=== PATIENT | female | born 1990 | race Caucasian/White ===

== ENCOUNTER 2016-06-27 10:40 | Emergency (ER) ==
[2016-06-27 10:53] VITALS: BP 133/82
--- NOTE | 2016-06-27 11:02 | PROVIDER DOCUMENTATION ---
HPI-Work Related Injury - General Chief Complaint: Work Related Injury Stated Complaint: WORK RELATED INJURY Time Seen by Provider: 06/27/16 11:02 Allergies/Adverse Reactions: Patient Allergies Allergy/AdvReac Type Severity Reaction Status Date / Time No Known Allergies Allergy Verified 06/27/16 11:01 Home Medications: Home Medication List Medication Instructions Recorded Confirmed Last Taken Type Acyclovir 400 mg PO BID 02/27/13 06/27/16 06/26/16 History Hydrocodone/APAP 7.5 mg/325 mg 7.5 mg PO PRN PRN 06/27/16 06/27/16 Unknown History [[place]-7.5] Mupirocin Ointment [Bactroban 1 applicatn TOP TID #1 tube 06/27/16 Unknown Rx Ointment] Tramadol [Ultram] 50 mg PO BID 06/27/16 06/27/16 Unknown History - History of Present Illness-Work Injury Nature of PresentingProblem: Pt sustained laceration to posterior aspect of left 2nd digit at distal phalanx yesterday when she was 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 Location of Pain/Injury: reports: other (left 2nd digit) Pain Radiation: reports: no radiation Body: 1 - laceration Quality of Pain: reports: aching Severity: reports: mild Onset/Duration: reports: 24 hours ago Timing: reports: still present Modifying Factors: improves with: rest Associated Symptoms: denies: dizziness, muscle aches, nausea, rash, weakness Similar Symptoms Previously?: No Recently seen or treated by another doctor?: No Review of Systems - Adult - REVIEW OF SYSTEMS - ADULT Constitutional: denies: chills, fever Eyes: denies: blurred vision, double vision Cardiovascular: reports: no symptoms reported Respiratory: reports: no symptoms reported Integumentary: reports: see HPI All Other Systems: Reviewed and Negative Past History - Adult - PAST MEDICAL HISTORY-ADULT Review of Records: reports: Old Records Reviewed, Nursing Assessment Review, Medications Reviewed, Social history reviewed & non-contributory. Other Conditions: reports: other (herpes) - PRIOR SURGERIES/PROCEDURES Surgical/Procedure History: reports: - PRIOR HOSPITALIZATIONS Prior Hospitalizations: reports: for other non-related - IMMUNIZATION STATUS Childhood Immunizations: UTD Flu Vaccine: UTD - FAMILY HISTORY Family History: reviewed, not pertinent - SOCIAL HISTORY Smoking: less than 1 pack/day Provider spent 3-5 mins advising pt. on dangers of tobacco.: Discussed manners to quit use, and f/u contacts for add'l counseling. Physical Exam-Injury Related - Physical Exam-Injury Related Initial Vital Signs Reviewed: Yes General Appearance: appears well, alert, no apparent distress Eyes: PERRL/EOMI, pink conjunctivae Head, Ears, Nose, Mouth & Throat: normocephalic/atraumatic, moist mucous membranes Respiratory: chest non-tender, lungs clear, normal breath sounds Cardiovascular: regular rate, rhythm, no edema Extremity: normal gait, tenderness (left 2nd digit) Integumentary: laceration (1cm laceration to posterior aspect left 2nd digit, distal phalanx) Neurologic: grossly normal, no motor/sensory deficits Psych/Mental Status: normal thought content, normal thought process - Glascow Coma Score Best Eye Response (Coleman): (4) open spontaneously Best Verbal Response (Coleman): (5) oriented Best Motor Response ([place]): (6) obeys commands Coleman Total: 15 Progress - PLAN OF CARE/RESULTS Progress/Plan/Lab Results: Vital Signs Temp Pulse Resp BP Pulse Ox 06/27/16 10:50 98.4 F 88 16 133/82 100 No Known Allergies Allergy (Verified 06/27/16 11:01) Acyclovir 400 mg PO BID 02/27/13 Hydrocodone/APAP 7.5 mg/325 mg [[place]-7.5] 7.5 mg PO PRN PRN 06/27/16 Tramadol [Ultram] 50 mg PO BID 06/27/16 Orders Category Date Time Status Frog Splint DIRECTED Care 06/27/16 11:11 Active Misc. NRSG Communication Order DIRECTED Care 06/27/16 11:10 Active Mupirocin Ointment [Bactroban Ointment] Med 06/27/16 11:16 Discontinued 1 gm TOP NOW ONE Explained to pt that laceration was too old (over 24 hours) and would not be sutured. Pt did not request sutures, request antibiotics to prevent infection. Departure - Departure Time of Disposition Order: 11:21 DIAGNOSIS: Laceration Disposition: HOME 01 Certified Medical Emergency: Emergent Condition: Good Additional Instructions: Keep wound clean and dry. ED Follow Up Instructions: You have been treated by a care provider in the Emergency Department. These instructions are being provided to you so you can have an understanding of how to care for yourself upon discharge. Upon discharge from the Emergency Department, you are responsible for making arrangements for follow-up care by a physician of your choice. Take all prescribed medications as directed. Return to the Emergency Department immediately for any new or worsening symptoms. You may call the Physician Referral phone number at [phone] to obtain a list of Physicians who are taking new patients. Prescriptions: Mupirocin Ointment [Bactroban Ointment] 1 applicatn TOP TID #1 tube Referrals: None,PCP [Primary Care Provider] - [facility] [NON-STAFF] - Forms: Work Excuse Attestation - Physician/ APRIL Attestation Patient care was provided by Advanced Practice Provider:: Yes Advanced Practice Provider:: Sia Stevenson Advanced Practice Provider documentation review:: The Mid-level provider documentation, treatment plan and medical decision making was reviewed by the physician who agrees with all treatment and medical decision making by the MLP.
[2016-06-27] MEDS ORDERED: BACTROBAN OINTMENT TOP ONE (11:16)
== END 2016-06-27 11:33 | disposition home or self-care (01) ==
LOC: ED 10:40
DX: S61.211A Laceration without foreign body of left index finger without damage to nail, initial encounter (principal); F17.210 Nicotine dependence, cigarettes, uncomplicated; Z79.899 Other long term (current) drug therapy; Z71.6 Tobacco abuse counseling; W45.8XXA Other foreign body or object entering through skin, initial encounter
CPT/HCPCS: 99284